=== PATIENT | female | born 1970 | race Caucasian/White ===

== ENCOUNTER 2016-06-07 09:55 | Emergency (ER) | payer BC ==
[~2016-06-07 09:55] MED LIST: AMIT25 PO; ANASPAZ0.125 MG PO; CELEXA40 MG PO; CRESTOR20 MG PO; HYZAAR 50/12.51 TAB PO; JANUMET1 TA1 PO; KRILL OIL PO; LEVOTHROID25 MCG PO; MACRODANTIN 10100 MG PO; ZANTAC300 MG PO
[2016-07-06] MEDS ORDERED: PROTONIX PO (08:47)
[2016-07-06] MEDS ORDERED: ZOL100 PO (08:48)
== END 2016-06-07 10:59 | disposition home or self-care (01) ==
LOC: ER 09:55
DX: M54.5 Low back pain (principal); I10 Essential (primary) hypertension; E78.5 Hyperlipidemia, unspecified; K21.9 Gastro-esophageal reflux disease without esophagitis; F32.9 Major depressive disorder, single episode, unspecified; E11.9 Type 2 diabetes mellitus without complications; Z88.1 Allergy status to other antibiotic agents; Z79.899 Other long term (current) drug therapy
CPT/HCPCS: 96372; 99283; A9270-GY; J2360

== ENCOUNTER 2016-07-10 04:21 | Day surgery (SDC) | payer BC ==
[2016-07-07 08:42] LABS: HEMATOCRIT 35.3 % (36.0-48.0)
[2016-07-07 08:54] LABS: BUN (BLOOD UREA NITROGEN) 10 MG/DL (6-23); CALCIUM, SERUM 8.6 MG/DL (8.5-10.4); CHLORIDE, SERUM 106 MMOL/L (96-112); CO2 (CARBON DIOXIDE) 26 MMOL/L (24-34); CREATININE 0.88 MG/DL (0.55-1.02); GFR AFRICAN AMERICAN 91 ML/MIN (>=60); GFR NON AFRICAN AMERICAN 78 ML/MIN (>=60); GLUCOSE, SERUM 106 MG/DL (60-99); SODIUM, SERUM 144 MMOL/L (135-148)
--- NOTE | ~2016-07-10 | OP ---
Record Of Operation [facility] [address] [place]. [address] NAME: PARESH CHAPMAN : 68 STATUS : [facility]#: [id number] AGE: 46 ADM/REG DATE : 07/10/16 MR#: [id number] REPORT SERV DATE: 07/11/16 DICTATED BY: MAURICE FONTANEZ II DATE: 07/11/16 REPORT STATUS : Draft TRANSCRIBED BY: MODAnnette DATE: 07/11/16 DATE OF PROCEDURE: 07/10/2016 PREOPERATIVE DIAGNOSES: 1. Large L5-S1 herniated nucleus pulposus. 2. Severe left lower extremity radiculopathy. POSTOPERATIVE DIAGNOSES: 1. Large L5-S1 herniated nucleus pulposus. 2. Severe left lower extremity radiculopathy. PROCEDURES: 1. Left L5-S1 microdiskectomy. 2. Use of the microscope and stereotactic spinal imaging. SURGEON: Maurice Fontanez M.D. FLUIDS REPLACED: 1 L lactated Ringer's. ESTIMATED BLOOD LOSS: 15 mL. DRAINS: None. COMPLICATIONS: None. ANTIBIOTICS: Preoperatively. PREOPERATIVE HISTORY: This is a friendly 46-year-old female, who is well known to me through her who is also a patient. She complains of severe radiating pain from the left buttock down the leg. She was found to have a very large HNP. DESCRIPTION OF PROCEDURE: After informed consent was obtained, the patient was brought to the operating room, and general anesthesia achieved. She was placed in the prone position, and the back was prepped and draped in a sterile fashion. The stereotactic spinal pin was placed into the right iliac crest followed by completion of the intraoperative CT scan. Stereotactic guidance was then used throughout the remainder of the case. The minimally invasive incision was performed on the left and the minimally invasive tubular retractor was placed (22 mm). This was an 8 cm deep retractor. The microscope was then brought into place and under microscopic visualization, the laminotomy was performed with the high-speed bur, the Kerrison rongeurs, and the curettes. The ligamentum flavum was detached and partially removed. This helped to reveal the S1 nerve root and a very large disk extrusion. Several large fragments were now retrieved from the canal. The S1 nerve root was now found to be very well decompressed. Irrigation was performed followed by use of bipolar electrocautery for hemostasis. Standard closure was performed, and the patient was then extubated and then transferred to PACU in stable condition. Record Of Operation [place] [address] [facility] [place]. [address] NAME: PARESH CHAPMAN : 68 STATUS : [facility] PAT#: [id number] AGE: 46 ADM/REG DATE : 07/10/16 MR#: [id number] REPORT SERV DATE: 07/11/16 DICTATED BY: MAURICE FONTANEZ II DATE: 07/11/16 REPORT STATUS : Draft TRANSCRIBED BY: DADA DATE: 07/11/16 DIYA/DADA Maurice Fontanez II, M.D. / [id number] CC: Josh Garcia II, M.D.
[~2016-07-10 04:21] MED LIST changes: +PROTONIX PO; +ZOL100 PO
== END 2016-07-10 10:52 | disposition home or self-care (01) ==
LOC: SDC 04:21
PROVIDERS: Orthopaedic Surgery
PROC: 0ST20ZZ Resection of Lumbar Vertebral Disc, Open Approach (ICD-10-PCS; principal; 2016-07-10 05:45)
DX: M51.17 Intervertebral disc disorders with radiculopathy, lumbosacral region (principal); F32.9 Major depressive disorder, single episode, unspecified; E11.9 Type 2 diabetes mellitus without complications; K21.9 Gastro-esophageal reflux disease without esophagitis; G47.30 Sleep apnea, unspecified; I10 Essential (primary) hypertension; Z79.899 Other long term (current) drug therapy; Z88.8 Allergy status to other drugs, medicaments and biological substances; Z98.890 Other specified postprocedural states
CPT/HCPCS: 80048; 82962; 84703; 85014; 85018; 88304; 88311; 93005; A9270-GY; J0690; J1030; J1170; J1885; J2250; J2405; J2710; J3010